=== PATIENT | male | born 1955 | race African-American/Black ===

== ENCOUNTER 2017-03-16 14:12 | Inpatient (IN) ==
--- NOTE | 2017-03-16 14:43 | EKG Report ---
Stationary ECG Study [facility] ER Test Date: 03/16/2017 2:25:57 PM Pat Name: BHAVANA JON Department: Room: Gender: M Math Instructor: Shelli Rosen : 1955 Requested by: Bhavana Coles Order Number: [id number] Reading MD: PAUL MCFADDEN Intervals [place] Rate: 77 P: 19 CO: 179 QRS: 13 QRSD: 113 T: 106 QT: 376 QTc: 408 Interpretive Statements SINUS RHYTHM INFERIOR INFARCT, AGE UNDETERMINED WITH POSTERIOR EXTENSION Electronically Signed On 03-16-17 17:08:18 CDT by PAUL MCFADDEN [email or web address]
[2017-03-16 15:12] LABS: Basophils % 0.2 % (0.0-0.8); Eosinophils % 0.4 % (0.00-10.9); Hemoglobin 11.9 GM/DL (14.0-18.0); Immature Granulocytes % 0.4 %; Immature Granulocytes Absolute 0.02 #; Lymphocytes # 0.7 10*3/uL (1.4-4.0); Lymphocytes % 14.3 % (21.2-54.2); Mean Corpuscular HGB Conc 31.3 GM/DL (32-36); Mean Corpuscular Hemoglobin 24 PG (27-34); Mean Corpuscular Volume 77.6 FL (87-102); Mean Platelet Volume 11.4 FL (9.6-12.0); Monocytes # 0.5 10*3/uL (0.11-0.8); Monocytes % 9.8 % (1.7-12.7); Neutrophils # 3.5 10*3/uL (1.4-7.4); Neutrophils % 74.9 % (38.7-73.9); Platelet Count 100 T/CUMM (130-400); Red Cell Distribution Width 16.6 % (9.3-17.3); White Blood Count 4.7 T/CUMM (4-12)
[2017-03-16 15:29] LABS: Alanine Aminotransferase 68 U/L (16-61); Albumin 3.8 G/DL (3.4-5.0); Alkaline Phosphatase 111 U/L (45-117); Aspartate Amino Transferase 48 U/L (0-37); Blood Urea Nitrogen 65 MG/DL (7-18); Calcium 9.2 MG/DL (8.5-10.1); Glucose 302 MG/DL (74-106); Magnesium 1.6 MG/DL (1.8-2.4); Osmolality,Calculated 299.1 MOS/KG (273-304); Sodium 135 MMOL/L (136-145); Total Protein 7.5 G/DL (6.4-8.3)
[2017-03-16 15:30] LABS: Troponin I Only 0.165 NG/ML (0.00-0.045)
--- NOTE | 2017-03-16 15:45 | Emergency Department Note ---
Arrival - Arrival Chief Complaint: Non-Specific Stated Complaint: chest pain, can hardly breath ED Nursing Triage Note: Pt c/o SOB, Cough, nasal congestion, chills, horseness, indigestion, and diarrhea x 2 wks. EKG done in triage. Mode of Arrival: Ambulatory - History of Present Illness Allergies/Adverse Reactions: Allergies Allergy/AdvReac Type Severity Reaction Status Date / Time No Known Allergies Allergy Verified 08/01/15 11:22 Home Medications: Home Medications Medication Instructions Recorded Confirmed Type Atazanavir Sulfate [Reyataz] 300 mg PO DAILY 07/11/15 03/16/17 History Insulin NPH Hum/Reg Insulin Hm 40 units INH QAM 07/11/15 03/16/17 History [NovoLIN 70/30] Metoprolol Succinate 50 mg PO DAILY 07/11/15 03/16/17 History Nitroglycerin Sl Tab [Nitrostat] 0.4 mg SL DIRECTED PRN 07/11/15 03/16/17 History Pantoprazole Sodium [Protonix] 40 mg PO DAILY 07/11/15 03/16/17 History Raltegravir [Isentress Tab] 400 mg PO BID 07/11/15 03/16/17 History Insulin NPH/Regular 70/30 [HumuLIN 30 unit SUBCUT BEDTIME injection 08/03/15 Rx 70/30] Mupirocin 2% Oint [Bactroban 2% 1 applic TOP TID #10 ointment 08/27/15 03/16/17 Rx Oint] Cetirizine HCl 10 mg PO DAILY 03/16/17 03/16/17 History Colchicine [Colcrys] 0.6 mg PO DAILY 03/16/17 03/16/17 History Hydrocodone/Acetaminophen [[place] 1 each PO Q12H PRN 03/16/17 03/16/17 History 10-325 Tablet] Isosorbide Mononitrate [Isosorbide 30 mg PO DAILY 03/16/17 03/16/17 History Mononitrate ER] Lisinopril/Hydrochlorothiazide 1 each PO DAILY 03/16/17 03/16/17 History [Lisinopril-Hctz 10-12.5 mg Tab] Lopinavir/Ritonavir 200-50 2 tablet PO BID 03/16/17 03/16/17 History [Kaletra 200-50] Pioglitazone HCl 30 mg PO DAILY 03/16/17 03/16/17 History Medical,Surgical,& Family Hx - Medical History Cardio: History of: Cardiac Dysrhythmia (BRADYCARDIA), CAD, Hypertension, Cardiovascular Problems (CABG 2008) Psychological: History of: Psychiatric/Substance Abuse Tx (Past HX of IV drug and ETOH use) Neurology: History of: Migraine No history of: Seizures Endocrine: History of: Diabetes Mellitus (IDDM), Dyslipidemia Respiratory: History of: Lung Cancer (3 years ago) Gastrointestinal: History of: GERD, Gastrointestinal Bleed, Hepatitis (C) Other: History of: HIV - Surgical History Cardiac Surgeries: Sugical HX of: Cardiac Surgery (CABG (2008)) - Family History Family History: Reports;: Family Diabetes, Family Hypertension, Family Stroke Denies;: Family Cancer - Social History Smoking Status: Former smoker Exam Vital Signs: Vital Signs Temperature 98.3 F 03/16/17 14:21 Pulse Rate 82 03/16/17 14:21 Respiratory Rate 20 03/16/17 14:21 Blood Pressure 121/72 03/16/17 14:21 O2 Sat by Pulse Oximetry 99 03/16/17 14:21 Results - Labs CBC & BMP: 03/16/17 14:48 03/16/17 14:48 Lab Results: I have reviewed the patients labs Labs: Laboratory Tests 03/16/17 14:48 Potassium 6.0 H* Troponin I 0.165 H
--- NOTE | 2017-03-16 15:50 | Emergency Department Note ---
Breanna Paul Hilary, am scribing for, and in the presence of, Jalen Mays MD 15: 47. Tabatha Paul James D, MD, personally performed the services described in this documentation, ascribed by Stacey Carlos in my presence, and it is both accurate and complete 550 . Arrival - Arrival ED Nursing Triage Note: Pt c/o SOB, Cough, nasal congestion, chills, horseness, indigestion, and diarrhea x 2 wks. EKG done in triage. Mode of Arrival: Ambulatory Limitations: No Limitations Source: Patient, RN Notes Reviewed - History of Present Illness Onset (ago): week(s) <Jalen Mays - Last Filed: 03/16/17 15:49> <Zeus Amato - Last Filed: 03/16/17 19:54> - Arrival Chief Complaint: Non-Specific Stated Complaint: chest pain, can hardly breath Time Seen by Provider: 03/16/17 15:40 - History of Present Illness HPI Narrative: Pt is a 61 y/o black male presenting to the ED with c/o diarrhea which onset 2 weeks ago. Pt states he is having diarrhea more than 3 times a day. Pt confirms diarrhea, vomiting, coughing, fever, abdominal pain and dysuria but denies chest pain. Pt had a CD4 level checked 3 weeks ago and he states it was good but he couldn't recall the actual number. No other complaints or problems stated in the ED. (Stacey Carlos) Pt is a 61 y/o black male presenting to the ED with c/o diarrhea which onset 2 weeks ago. Pt states he is having diarrhea more than 3 times a day. Pt confirms diarrhea, vomiting, coughing, fever, abdominal pain and dysuria but denies chest pain. Pt had a CD4 level checked 3 weeks ago and he states it was good but he couldn't recall the actual number. No other complaints or problems stated in the ED. (Jalen Mays) Allergies/Adverse Reactions: Allergies Allergy/AdvReac Type Severity Reaction Status Date / Time No Known Allergies Allergy Verified 08/01/15 11:22 Home Medications: Home Medications Medication Instructions Recorded Confirmed Type Atazanavir Sulfate [Reyataz] 300 mg PO DAILY 07/11/15 03/16/17 History Insulin NPH Hum/Reg Insulin Hm 40 units INH QAM 07/11/15 03/16/17 History [NovoLIN 70/30] Metoprolol Succinate 50 mg PO DAILY 07/11/15 03/16/17 History Nitroglycerin Sl Tab [Nitrostat] 0.4 mg SL DIRECTED PRN 07/11/15 03/16/17 History Pantoprazole Sodium [Protonix] 40 mg PO DAILY 07/11/15 03/16/17 History Raltegravir [Isentress Tab] 400 mg PO BID 07/11/15 03/16/17 History Insulin NPH/Regular 70/30 [HumuLIN 30 unit SUBCUT BEDTIME injection 08/03/15 Rx 70/30] Mupirocin 2% Oint [Bactroban 2% 1 applic TOP TID #10 ointment 08/27/15 03/16/17 Rx Oint] Cetirizine HCl 10 mg PO DAILY 03/16/17 03/16/17 History Colchicine [Colcrys] 0.6 mg PO DAILY 03/16/17 03/16/17 History Hydrocodone/Acetaminophen [[place] 1 each PO Q12H PRN 03/16/17 03/16/17 History 10-325 Tablet] Isosorbide Mononitrate [Isosorbide 30 mg PO DAILY 03/16/17 03/16/17 History Mononitrate ER] Lisinopril/Hydrochlorothiazide 1 each PO DAILY 03/16/17 03/16/17 History [Lisinopril-Hctz 10-12.5 mg Tab] Lopinavir/Ritonavir 200-50 2 tablet PO BID 03/16/17 03/16/17 History [Kaletra 200-50] Pioglitazone HCl 30 mg PO DAILY 03/16/17 03/16/17 History Review of System - Review of System 12 point system: reviewed and no additional remarkable complaints except as stated - Review of System Constitutional: Present: fever Cardiovascular: Absent: chest pain Gastrointestinal: Present: abdominal pain, vomiting, diarrhea Genitourinary male: Present: dysuria <Jalen Mays - Last Filed: 03/16/17 15:49> Medical,Surgical,& Family Hx - Medical History Cardio: History of: Cardiac Dysrhythmia (BRADYCARDIA), CAD, Hypertension, Cardiovascular Problems (CABG 2008) Psychological: History of: Psychiatric/Substance Abuse Tx (Past HX of IV drug and ETOH use) Neurology: History of: Migraine No history of: Seizures Endocrine: History of: Diabetes Mellitus (IDDM), Dyslipidemia Respiratory: History of: Lung Cancer (3 years ago) Gastrointestinal: History of: GERD, Gastrointestinal Bleed, Hepatitis (C) Other: History of: HIV - Surgical History Cardiac Surgeries: Sugical HX of: Cardiac Surgery (CABG (2008)) - Family History Family History: Reports;: Family Diabetes, Family Hypertension, Family Stroke Denies;: Family Cancer - Social History Smoking Status: Former smoker <Jalen Mays - Last Filed: 03/16/17 15:49> Exam <Jalen Mays - Last Filed: 03/16/17 15:49> <Zeus Amato - Last Filed: 03/16/17 19:54> Physical Examination: GENERAL: This is a well-nourished, well-developed in no apparent distress. VITAL SIGNS: Temperature: 98.3 Pulse: 82 Respiratory: 20 Blood Pressure: 121/ 72 O2Sat: 99 HEENT: Head is normocephalic and atraumatic. Pupils are equally round and reactive to light. Extraocular movement are intact. Oropharynx is benign with moist mucous membranes. NECK: Neck is soft and supple without tenderness. There are no masses. There is no lymphadenopathy. LUNGS: Lungs are clear to auscultation bilaterally. Chest rises symmetrically. There is no chest wall tenderness. CV: Heart is regular rate and rhythm without murmurs, rubs, or gallops. ABDOMEN: Abdomen is soft, non-tender to palpation. There are no abnormal masses palpated. There is no organomegaly. Bowel sounds are present and active. SKIN: Skin is warm and dry. No rash. EXTREMITIES: Patient has full range of motion without tenderness. There is no pedal edema. NEUROLOGIC: Awake, alert, and oriented x4. Cranial nerves II through XII are grossly intact. There are no motorsensory deficits. PSYCHIATRIC: Normal affect. Normal mood. ([place],Stacey) GENERAL: This is a well-nourished, well-developed slightly thin black male in no apparent distress. VITAL SIGNS: Temperature: 98.3 Pulse: 82 Respiratory: 20 Blood Pressure: 121/ 72 O2Sat: 99 HEENT: Head is normocephalic and atraumatic. Pupils are equally round and reactive to light. Extraocular movement are intact. Oropharynx is benign with moist mucous membranes. NECK: Neck is soft and supple without tenderness. There are no masses. There is no lymphadenopathy. LUNGS: Lungs are clear to auscultation bilaterally. Chest rises symmetrically. There is no chest wall tenderness. CV: Heart is regular rate and rhythm without murmurs, rubs, or gallops. ABDOMEN: Abdomen is soft, non-tender to palpation. There are no abnormal masses palpated. There is no organomegaly. Bowel sounds are present and active. SKIN: Skin is warm and dry. No rash. EXTREMITIES: Patient has full range of motion without tenderness. There is no pedal edema. NEUROLOGIC: Awake, alert, and oriented x4. Cranial nerves II through XII are grossly intact. There are no motorsensory deficits. PSYCHIATRIC: Normal affect. Normal mood. (Jalen Mays) Vital Signs: Vital Signs Temperature 98.4 F 03/16/17 19:03 Pulse Rate 76 03/16/17 19:03 Respiratory Rate 18 03/16/17 19:03 Blood Pressure 143/93 03/16/17 19:03 O2 Sat by Pulse Oximetry 98 03/16/17 19:03 Course <Jalen Mays - Last Filed: 03/16/17 15:49> - Reevaluation(s) Time: 17:30 - Consultations Time: 17:45 Time: 17:52 <Zeus Amato - Last Filed: 03/16/17 19:54> - Reevaluation(s) Reevaluation #1: 18-gauge was placed in left IJ by me for IV access. (Zeus Amato) - Consultations Consultation #1: I have repetitively asked for urine to be collected. Thus far no urine has been collected. Continuing to wait. (Zeus Amato) Consultation #2: I discussed the patient with the hospitalist service who will admit the patient for further evaluation and IV fluids. (Zeus Amato) Results - Labs CBC & BMP: 03/16/17 14:48 03/16/17 14:48 Lab Results: I have reviewed the patients labs <Jalen Mays - Last Filed: 03/16/17 15:49> - Labs CBC & BMP: 03/16/17 14:48 03/16/17 17:01 <AmatoZeus apodaca M - Last Filed: 03/16/17 19:54> - Labs Labs: Laboratory Tests 03/16/17 03/16/17 03/16/17 14:48 14:48 14:48 WBC 4.7 RBC 4.90 Hgb 11.9 L Hct 38.0 L MCV 77.6 L MCH 24 L MCHC 31.3 L Plt Count 100 L Neut % (Auto) 74.9 H Lymph % (Auto) 14.3 L Lymph # (Auto) 0.7 L Sodium 135 L Potassium 6.0 H* Chloride 109 H Carbon Dioxide 18 L BUN 65 H Creatinine 3.50 H Glucose 302 H Magnesium 1.6 L Total Bilirubin 4.40 H AST 48 H ALT 68 H CK-MB (CK-2) 4.8 H Troponin I 0.165 H B-Natriuretic Peptide 123 H Globulin 3.7 H Albumin/Globulin Ratio 1.0 L (Stacey Carlos) Laboratory Tests 03/16/17 03/16/17 03/16/17 14:48 14:48 14:48 WBC 4.7 RBC 4.90 Hgb 11.9 L Hct 38.0 L MCV 77.6 L MCH 24 L MCHC 31.3 L Plt Count 100 L Neut % (Auto) 74.9 H Lymph % (Auto) 14.3 L Lymph # (Auto) 0.7 L Sodium 135 L Potassium 6.0 H* Chloride 109 H Carbon Dioxide 18 L BUN 65 H Creatinine 3.50 H Glucose 302 H Magnesium 1.6 L Total Bilirubin 4.40 H AST 48 H ALT 68 H CK-MB (CK-2) 4.8 H Troponin I 0.165 H B-Natriuretic Peptide 123 H Globulin 3.7 H Albumin/Globulin Ratio 1.0 L (Jalen Mays) Lab Results WBC 4.7 T/CUMM (4-12) 03/16/17 14:48 RBC 4.90 MC/CUMM (3.8-5.5) 03/16/17 14:48 Hgb 11.9 GM/DL (14.0-18.0) L 03/16/17 14:48 Hct 38.0 VOL% (42.0-52.0) L 03/16/17 14:48 MCV 77.6 FL (87-102) L 03/16/17 14:48 MCH 24 PG (27-34) L 03/16/17 14:48 MCHC 31.3 GM/DL (32-36) L 03/16/17 14:48 RDW 16.6 % (9.3-17.3) 03/16/17 14:48 Plt Count 100 T/CUMM (130-400) L 03/16/17 14:48 MPV 11.4 FL (9.6-12.0) 03/16/17 14:48 Neut % (Auto) 74.9 % (38.7-73.9) H 03/16/17 14:48 Lymph % (Auto) 14.3 % (21.2-54.2) L 03/16/17 14:48 [place] % (Auto) 9.8 % (1.7-12.7) 03/16/17 14:48 Eos % (Auto) 0.4 % (0.00-10.9) 03/16/17 14:48 Baso % (Auto) 0.2 % (0.0-0.8) 03/16/17 14:48 Neut # (Auto) 3.5 10*3/uL (1.4-7.4) 03/16/17 14:48 Lymph # (Auto) 0.7 10*3/uL (1.4-4.0) L 03/16/17 14:48 [place] # (Auto) 0.5 10*3/uL (0.11-0.8) 03/16/17 14:48 Eos # (Auto) 0.0 10*3/uL (0.0-0.87) 03/16/17 14:48 Baso # (Auto) 0.0 10*3/uL (0.0-0.2) 03/16/17 14:48 Immature Gran % 0.4 % 03/16/17 14:48 Nucleated RBC % 0.0 /100WBC 03/16/17 14:48 Immature Gran # 0.02 # 03/16/17 14:48 Nucleated RBCs # 0.00 10*3/uL 03/16/17 14:48 Sodium 135 MMOL/L (136-145) L 03/16/17 14:48 Potassium 5.5 MMOL/L (3.5-5.1) H 03/16/17 17:01 Chloride 109 MMOL/L (98-107) H 03/16/17 14:48 Carbon Dioxide 18 MMOL/L (21-32) L 03/16/17 14:48 Anion Gap 14.0 MMOL/L (5.0-15.0) 03/16/17 14:48 BUN 65 MG/DL (7-18) H 03/16/17 14:48 Creatinine 3.50 MG/DL (0.70-1.30) H 03/16/17 14:48 GFR Calculation 23 ML/MIN 03/16/17 14:48 BUN/Creatinine Ratio 18.00 RATIO (6.00-20.00) 03/16/17 14:48 Glucose 302 MG/DL (74-106) H 03/16/17 14:48 Calculated Osmolality 299.1 MOS/KG (273-304) 03/16/17 14:48 Lactic Acid 1.9 MMOL/L (0.4-2.0) 03/16/17 14:48 Calcium 9.2 MG/DL (8.5-10.1) 03/16/17 14:48 Magnesium 1.6 MG/DL (1.8-2.4) L 03/16/17 14:48 Total Bilirubin 4.40 MG/DL (0.2-1.0) H 03/16/17 14:48 AST 48 U/L (0-37) H 03/16/17 14:48 ALT 68 U/L (16-61) H 03/16/17 14:48 Alkaline Phosphatase 111 U/L (45-117) 03/16/17 14:48 Total Creatine Kinase 113 U/L (39-308) 03/16/17 14:48 CK-MB (CK-2) 4.8 U/L (0.5-3.6) H 03/16/17 14:48 Troponin I 0.165 NG/ML (0.00-0.045) H 03/16/17 14:48 B-Natriuretic Peptide 123 PG/ML (2-100) H 03/16/17 14:48 Total Protein 7.5 G/DL (6.4-8.3) 03/16/17 14:48 Albumin 3.8 G/DL (3.4-5.0) 03/16/17 14:48 Globulin 3.7 G/DL (2.3-3.5) H 03/16/17 14:48 Albumin/Globulin Ratio 1.0 RATIO (1.1-2.2) L 03/16/17 14:48 (Zeus Amato) Disposition Case discussed with: patient <Jalen Mays - Last Filed: 03/16/17 15:49> Case discussed with: patient <Zeus Amato - Last Filed: 03/16/17 19:54> Clinical Impression: Diarrhea, HIV (human immunodeficiency virus infection), Moderate dehydration, Hyperglycemia, Hyperkalemia, Renal failure, acute Disposition: Still a Patient Condition: Stable
[2017-03-16 16:15] LABS: Lactic Acid 1.9 MMOL/L (0.4-2.0)
--- NOTE | 2017-03-16 16:17 | XRay Report ---
XR chest 2V Date: 03/16/2017 2:40 PM History: Shortness of breath, cough Comparison: 08/23/2015 Technique: PA and lateral chest Findings: The heart is normal in size. Prior median sternotomy with chronic scarring. Stable irregular density in the left upper lobe/hilar location. Persistent upward retraction of the left hilum. Degenerative changes are noted. Impression: COPD with chronic scarring in the left superhilar location extending into the left upper lobe in patient with prior median sternotomy and history of carcinoma of the lung. No significant progressive findings are identified. PROCEDURE INTERPRETED AT [facility] DEPARTMENT OF RADIOLOGY Final Report Signed by: Dr. Roshni Barton
--- NOTE | 2017-03-16 16:21 | XRay Report ---
Exam: XR abdomen 2V Date: 03/16/2017 3:44 PM Comparison: 11/10/2013 Indication: Generalized abdominal pain Technique:[Supine and erect abdomen] Findings: Mild gaseous distention of the colon with no free air. Multiple calcified gallstones are identified. Prior median sternotomy with arterial calcifications. Progressive degenerative changes. Impression: Mild gaseous distention of the colon which could be related possible ileus, etc. Cholelithiasis with vascular calcifications. Prior median sternotomy with irregular density in the left suprahilar location as described on chest x-ray report of same day. PROCEDURE INTERPRETED AT [facility] DEPARTMENT OF RADIOLOGY Final Report Signed by: Dr. Roshni Barton
[2017-03-16] MEDS ORDERED: NITROGLYCERIN SL 0.4 MG TABLET SL PRN (18:03)
--- NOTE | 2017-03-16 18:44 | Hospitalist History & Physical ---
Assessment and Plan - Time spent with patient Time spent with patient: Greater than 30 minutes (1) Hyperkalemia Status: Acute Assessment and plan: Mr. Webber is a 61-year-old -[place] male with multiple medical problems admitted with persistent diarrhea with hypokalemia, hypomagnesemia, acute renal failure and hyperglycemia. Patient will be admitted to the floor by hospital medicine, given IV fluids and magnesium replacement. Recheck his labs in the morning and make adjustments as needed. His home medicines have been restarted. We will also check a stool studies and gallbladder ultrasound. Dr. Michele has seen and examined the patient further recommendations to follow. Current Visit: No (2) Anemia Status: Acute Current Visit: No Qualifiers: Anemia type: unspecified cause Qualified Code(s): D64.9 - Anemia, unspecified (3) Renal failure, acute Status: Acute Current Visit: No Qualifiers: Acute renal failure type: with acute tubular necrosis Qualified Code(s): N17.0 - Acute kidney failure with tubular necrosis (4) Hypertension Status: Chronic Current Visit: No (5) Diabetes mellitus, insulin dependent (IDDM), controlled Status: Chronic Current Visit: No (6) Hypomagnesemia Status: Acute Current Visit: No (7) HIV (human immunodeficiency virus infection) Status: Acute Current Visit: No (8) Diarrhea Status: Acute Current Visit: Yes (9) Moderate dehydration Status: Acute Current Visit: Yes (10) Hyperglycemia Status: Acute Current Visit: Yes History of Present Illness Chief complaint: Diarrhea/pain History of present illness: Mr. Webber is a 61 year old male with history of HIV, substance abuse, CAD status post CABG, bradycardia, diabetes, and lung cancer presenting to the ED with 2 month history of diarrhea. Patient states it has worsened over the last few days with up to 4-5 bowel movements per day that are watery associated with abdominal cramping. Patient says he does get hungry but when he eats he immediately has abdominal cramping with diarrhea. Patient states he has had intermittent fever, cold sweats, intermittent nausea and vomiting. Patient denies headache blurry vision, dysphagia, constipation, chest pain, shortness of breath, or lower extremity edema. Patient is afebrile and white count is normal. His initial potassium in the ED was 6 and is now dropped down to 5.5. Patient's creatinine is elevated at 3.5 and blood sugars over 300. Patient's mag is low and his bilirubin is elevated at 4.4. He also has an elevated troponin of 0.165 and a BNP of 123. After discussion with Dr. Rojas the ED physician and Dr. Michele the admitting hospitalist, it was agreed patient will be admitted for further evaluation and treatment. Home Medications Medication Instructions Recorded Confirmed Type Atazanavir Sulfate [Reyataz] 300 mg PO DAILY 07/11/15 03/16/17 History Insulin NPH Hum/Reg Insulin Hm 40 units INH QAM 07/11/15 03/16/17 History [NovoLIN 70/30] Metoprolol Succinate 50 mg PO DAILY 07/11/15 03/16/17 History Nitroglycerin Sl Tab [Nitrostat] 0.4 mg SL DIRECTED PRN 07/11/15 03/16/17 History Pantoprazole Sodium [Protonix] 40 mg PO DAILY 07/11/15 03/16/17 History Raltegravir [Isentress Tab] 400 mg PO BID 07/11/15 03/16/17 History Insulin NPH/Regular 70/30 [HumuLIN 30 unit SUBCUT BEDTIME injection 08/03/15 Rx 70/30] Mupirocin 2% Oint [Bactroban 2% 1 applic TOP TID #10 ointment 08/27/15 03/16/17 Rx Oint] Cetirizine HCl 10 mg PO DAILY 03/16/17 03/16/17 History Colchicine [Colcrys] 0.6 mg PO DAILY 03/16/17 03/16/17 History Hydrocodone/Acetaminophen [[place] 1 each PO Q12H PRN 03/16/17 03/16/17 History 10-325 Tablet] Isosorbide Mononitrate [Isosorbide 30 mg PO DAILY 03/16/17 03/16/17 History Mononitrate ER] Lisinopril/Hydrochlorothiazide 1 each PO DAILY 03/16/17 03/16/17 History [Lisinopril-Hctz 10-12.5 mg Tab] Lopinavir/Ritonavir 200-50 2 tablet PO BID 03/16/17 03/16/17 History [Kaletra 200-50] Pioglitazone HCl 30 mg PO DAILY 03/16/17 03/16/17 History Allergies Allergy/AdvReac Type Severity Reaction Status Date / Time No Known Allergies Allergy Verified 08/01/15 11:22 Medical,Surgical,& Family Hx - Medical History Cardio: History of: Cardiac Dysrhythmia (BRADYCARDIA), CAD, Hypertension, Cardiovascular Problems (CABG 2008) Psychological: History of: Psychiatric/Substance Abuse Tx (Past HX of IV drug and ETOH use) Neurology: History of: Migraine No history of: Seizures Endocrine: History of: Diabetes Mellitus (IDDM), Dyslipidemia Respiratory: History of: Lung Cancer (3 years ago) Gastrointestinal: History of: GERD, Gastrointestinal Bleed, Hepatitis (C) Other: History of: HIV - Surgical History Cardiac Surgeries: Sugical HX of: Cardiac Surgery (CABG (2008)) - Family History Family History: Reports;: Family Diabetes, Family Hypertension, Family Stroke Denies;: Family Cancer - Social History Smoking Status: Former smoker Marital Status: Single Lives With:: Alone Functional capacity: independent ambulation Review of systems: Complete 10 system review of systems was obtained and pertinent negatives and positives per HPI Exam - Constitutional Vitals: Period Temp Pulse Resp BP Sys/[place] Pulse Ox Last 24 Hr 98.3 F-98.4 F 76-82 18-20 121/72 96-99 Exam: Constitutional System: No distress. No tremulousness. Head: Normocephalic, atraumatic. Ears, Nose and Throat System: No evidence of Otitis or Mastoiditis. No epistaxis or discharge Eyes System: Pupils equal, round, and reactive. Extraocular muscles intact. Neck: Supple, without adenopathy, No jugular venous distention. No thyromegaly, neck mass, or prior surgery apparent. Respiratory System: Chest clear to auscultation. Cardiovascular System: Heart with regular rate and rhythm. No murmur. GI System: Abdomen mildly distended, mildly tender throughout. Normo active bowel sounds present. Musculoskeletal System: limbs with no pedal edema. Full distal pulses. Neurological System: No discernable sensory deficit. No aphasia Psychiatric System: Conversation is rational Results - Labs CBC & BMP: 03/16/17 14:48 03/16/17 17:01 Lab Results: I have reviewed the past 24 hour labs - EKG EKG shows: sinus rhythm - Impressions EKG reading sinus rhythm with age-indeterminate inferior infarct and minimal ST depression - Diagnostic Findings Procedure: Abdominal x-ray: report reviewed by me (Mild gaseous distention of the colon. Cholelithiasis), Chest x-ray: report reviewed by me (COPD with chronic scarring)
[2017-03-16] MEDS ORDERED: DEXTROSE 50% 25 GM/50 ML VIAL IV PRN (18:49)
[2017-03-16] MEDS ORDERED: GLUCAGON 1 MG VIAL IM PRN (18:49)
--- NOTE | 2017-03-16 20:16 | Ultrasound Report ---
Right upper quadrant ultrasound Indication: Abdominal Pain, nausea Findings: The liver is normal in size with heterogeneous echogenicity and nodular contour. The gallbladder has multiple mobile calculi and sludge are present. The gallbladder wall thickness is 2.0 mm . The common bile duct measures 5.0 mm. The visualized portion of the pancreas appear within normal limits The right kidney is normal in size and echogenicity and measures 8.9 cm . No free fluid or free air seen. Impression: Heterogeneous liver with nodular contour, and indicate cirrhosis. Cholelithiasis and gallbladder sludge. No signs of acute cholecystitis seen. No other evidence of abnormality demonstrated. Ultrasound images stored and captured. PROCEDURE INTERPRETED AT [facility] DEPARTMENT OF RADIOLOGY Final Report Signed by: Dr. Escobar Cormier
[2017-03-16] MEDS ORDERED: ACETAMINOPHEN 325 MG TABLET PO PRN (20:55)
[2017-03-16] MEDS ORDERED: ONDANSETRON 4 MG/2 ML VIAL IV PRN (20:55)
[2017-03-16] MEDS ORDERED: LOPERAMIDE 2 MG CAPSULE PO PRN (20:55)
[2017-03-16] MEDS ORDERED: LOPINAVIR/RITONAVIR 200-50 MG TABLET PO SCH (21:00)
[2017-03-16] MEDS: SODIUM CHLORIDE 0.9% 1,000 ML IV SCH (21:33)
[2017-03-16] MEDS: metroNIDAZOLE 250 MG TABLET PO SCH (22:28)
[2017-03-16] MEDS: INSULIN REGULAR 100 UNIT/ML SUBCUT SCH (22:28)
[2017-03-16] MEDS: RALTEGRAVIR 400 MG TABLET PO SCH (22:28)
[2017-03-16] MEDS: INSULIN NPH/REGULAR 70/30 100 UNIT/ML SUBCUT SCH (22:28)
[2017-03-16] MEDS: MUPIROCIN 2% OINT 22 GM TUBE TOP SCH (22:29)
[2017-03-17 04:58] LABS: Basophils % 0.3 % (0.0-0.8); Eosinophils % 0.8 % (0.00-10.9); Hematocrit 31.1 VOL% (42.0-52.0); Hemoglobin 9.5 GM/DL (14.0-18.0); Immature Granulocytes % 0.3 %; Immature Granulocytes Absolute 0.01 #; Lymphocytes # 0.6 10*3/uL (1.4-4.0); Lymphocytes % 15.6 % (21.2-54.2); Mean Corpuscular HGB Conc 30.5 GM/DL (32-36); Mean Corpuscular Hemoglobin 24 PG (27-34); Mean Corpuscular Volume 78.3 FL (87-102); Mean Platelet Volume 11.2 FL (9.6-12.0); Monocytes # 0.5 10*3/uL (0.11-0.8); Monocytes % 12.2 % (1.7-12.7); Neutrophils # 2.8 10*3/uL (1.4-7.4); Neutrophils % 70.8 % (38.7-73.9); Platelet Count 76 T/CUMM (130-400); Red Blood Count 3.97 MC/CUMM (3.8-5.5); Red Cell Distribution Width 16.3 % (9.3-17.3); White Blood Count 3.9 T/CUMM (4-12)
[2017-03-17 05:11] LABS: Calcium 7.7 MG/DL (8.5-10.1); Magnesium 1.7 MG/DL (1.8-2.4); Osmolality,Calculated 300.5 MOS/KG (273-304); Potassium 5.6 MMOL/L (3.5-5.1)
[2017-03-17 05:33] LABS: Hypochromasia 1+; Lymphocytes 20 % (20-55); Microcytosis 1+; Nucleated Red Blood Cells 1 (0-5); Ovalocytes Few; Segmented Neutrophils 69 % (50-85); Total Cells Counted 100
[2017-03-17 05:34] LABS: Platelet Estimate Decreased
[2017-03-17] MEDS: metroNIDAZOLE 250 MG TABLET PO SCH ×4 (06:04→21:02)
[2017-03-17] MEDS: SODIUM CHLORIDE 0.9% 1,000 ML IV SCH (06:05)
--- NOTE | 2017-03-17 09:31 | Infectious Disease Consult ---
Assessment and Plan (1) Diabetes Status: Acute Assessment and plan: Diabetes seems uncontrolled Current Visit: Yes (2) Diarrhea Status: Acute Assessment and plan: I am not sure if this is actual diarrhea by definition that is it does not seem as if he has been having within 3 loose stools per day. Further if he was really having diarrhea he should be hypokalemic or at least normokalemic rather than hyperkalemic [from wasting potassium in the stool]. Stool studies are pending and we will see if anything comes up positive. Otherwise the "diarrhea" may very well be related to his antiretroviral therapy , particularly the Kaletra. There is a known adverse effect of this medicine, among other metabolic adverse effects, which is why it is not use this much anymore. Current Visit: Yes (3) HIV (human immunodeficiency virus infection) Status: Acute Assessment and plan: The patient reported controlled, his last visit was a month ago. CD4 and viral load are pending him and we will see what those show. He is not on PCP on MAC prophylaxis it seems his CD4 count is above 200. Thank you very much for the consult. Will follow. Current Visit: Yes (4) Renal failure, acute Status: Acute Assessment and plan: Probably related to volume depletion from his "diarrhea". He has baseline chronic renal insufficiency based on review of old results. So this is acute on chronic renal failure. No need for adjusting dose of antiretroviral therapy for renal function. Current Visit: Yes (5) Hyperkalemia Status: Acute Assessment and plan: Likely related to acute renal insufficiency. Improving. Current Visit: No (6) Hypertension Status: Chronic Current Visit: No History of Present Illness Chief complaint: Diarrhea, HIV infection History of present illness: Mr. Webber is a 61 year old male who is a very poor historian. He says he has HIV infection for over 20 years. He says he is controlled on his current antiretroviral regimen which is unusual one consisted of Reyataz, Kaletra, and Isentress. He sees a provider in [place]. He is doing relatively well until 2 months sorry 2 weeks ago he said when he developed diarrhea. The diarrhea was not every day some days 3 loose liquid stools of a days none. He started feeling malaise over the past week weak and unable to complete his regular activities without extreme fatigue. Because this was not getting better he decided to come to the hospital. He has not had any fever but sometimes he had chills. With the diarrhea there was no associated nausea or vomiting but he says he suffers some reflux in the if he takes medicine for that. No dysphagia. No sores in his mouth. He thinks he has a cold has been had he has been having a mild cough with some yellowish sputum but no pleuritic chest pain. No shortness of breath. Home Medications Medication Instructions Recorded Confirmed Type Atazanavir Sulfate [Reyataz] 300 mg PO DAILY 07/11/15 03/16/17 History Metoprolol Succinate 50 mg PO DAILY 07/11/15 03/16/17 History Nitroglycerin Sl Tab [Nitrostat] 0.4 mg SL DIRECTED PRN 07/11/15 03/16/17 History Pantoprazole Sodium [Protonix] 40 mg PO DAILY 07/11/15 03/16/17 History Raltegravir [[place]entress Tab] 400 mg PO BID 07/11/15 03/16/17 History Insulin NPH/Regular 70/30 [HumuLIN 30 unit SUBCUT BEDTIME injection 08/03/15 Rx 70/30] Mupirocin 2% Oint [Bactroban 2% 1 applic TOP TID #10 ointment 08/27/15 03/16/17 Rx Oint] Cetirizine HCl 10 mg PO DAILY 03/16/17 03/16/17 History Colchicine [Colcrys] 0.6 mg PO DAILY 03/16/17 03/16/17 History Hydrocodone/Acetaminophen [[place] 1 each PO Q12H PRN 03/16/17 03/16/17 History 10-325 Tablet] Insulin NPH/Regular 70/30 [HumuLIN 30 units SUBCUT BEDTIME 03/16/17 03/16/17 History 70/30] Isosorbide Mononitrate [Isosorbide 30 mg PO DAILY 03/16/17 03/16/17 History Mononitrate ER] Lisinopril/Hydrochlorothiazide 1 each PO DAILY 03/16/17 03/16/17 History [Lisinopril-Hctz 10-12.5 mg Tab] Lopinavir/Ritonavir 200-50 2 tablet PO BID 03/16/17 03/16/17 History [Kaletra 200-50] Pioglitazone HCl 30 mg PO DAILY 03/16/17 03/16/17 History Allergies Allergy/AdvReac Type Severity Reaction Status Date / Time No Known Allergies Allergy Verified 08/01/15 11:22 12 point system: reviewed and no additional remarkable complaints except as stated (Per HPI) Medical,Surgical,& Family Hx - Medical History Cardio: History of: Cardiac Dysrhythmia (BRADYCARDIA), CAD, Hypertension, Cardiovascular Problems (CABG 2008) Psychological: History of: Psychiatric/Substance Abuse Tx (Past HX of IV drug and ETOH use) Neurology: History of: Migraine No history of: Seizures Endocrine: History of: Diabetes Mellitus (IDDM), Dyslipidemia Respiratory: History of: Lung Cancer (3 years ago) Gastrointestinal: History of: GERD, Gastrointestinal Bleed, Hepatitis (C) Other: History of: HIV - Surgical History Cardiac Surgeries: Sugical HX of: Cardiac Surgery (CABG (2008)) Thoracic Surgeries: Patient denies;: Organ Transplant - Family History Family History: Reports;: Family Diabetes, Family Hypertension, Family Stroke Denies;: Family Cancer - Social History Smoking Status: Former smoker Frequency of Alcohol Use: None Type of Drug Use: None Infectious Disease Exam H&P - Constitutional Vitals: Vital Signs Temp Pulse Resp BP Pulse Ox 97.7 F 73 18 144/89 99 03/17/17 07:36 03/17/17 07:36 03/17/17 07:36 03/17/17 07:36 03/17/17 07:36 Intake and Output 03/16/17 03/17/17 03/17/17 23:59 07:59 15:59 Intake Total 240 / 240 1480 / 1480 Balance 240 / 240 1480 / 1480 Intake: IV 1000 / 1000 Ns 1,000 ml @ 125 mls/hr 1000 / 1000 IV .[facility] Rx#: [id number] Oral 240 / 240 480 / 480 Other: Voiding Method Toilet Toilet # Voids 1 1 # Bowel Movements 1 1 Weight 72.575 kg Exam: General: Patient relatively comfortable, nontoxic appearing, he is a bit thin but not cachectic HEENT: Mucous membranes pink and moist, anicteric acyanotic, JEMIMA, no oropharyngeal exudates Neck: Supple, no thyroid gland enlargement, no lymphadenopathy Respiratory system: Breath sounds vesicular, no crepitations or wheezes Cardiovascular: Normal S1 and S2, no murmurs appreciated Abdomen: Normal bowel sounds, soft nontender throughout, no organomegaly or mass Genitourinary: No suprapubic pain or bladder distention Extremities: no edema Skin: No rash Reports - Labs CBC & BMP: 03/17/17 04:42 03/17/17 04:42 Labs: Laboratory Results - last 24 hr 03/16/17 03/17/17 03/17/17 21:03 04:42 04:42 WBC 3.9 L RBC 3.97 Hgb 9.5 L D Hct 31.1 L MCV 78.3 L MCH 24 L MCHC 30.5 L RDW 16.3 Plt Count 76 L D MPV 11.2 Neut % (Auto) 70.8 Lymph % (Auto) 15.6 L [place] % (Auto) 12.2 Eos % (Auto) 0.8 Baso % (Auto) 0.3 Neut # (Auto) 2.8 Lymph # (Auto) 0.6 L [place] # (Auto) 0.5 Eos # (Auto) 0.0 Baso # (Auto) 0.0 Total Counted 100 Immature Gran % 0.3 Nucleated RBC % 0.0 Immature Gran # 0.01 Segmented Neutrophils 69 Lymphocytes 20 Monocytes 10 Basophils 1.0 H Nucleated RBCs 1 Nucleated RBCs # 0.00 Platelet Estimate Decreased Hypochromasia 1+ Microcytosis 1+ Ovalocytes Few Sodium 139 Potassium 5.6 H Chloride 114 H Carbon Dioxide 18 L Anion Gap 12.6 BUN 58 H Creatinine 2.70 H GFR Calculation 31 BUN/Creatinine Ratio 21.00 H Glucose 236 H POC Glucose 224 H Calculated Osmolality 300.5 Calcium 7.7 L Magnesium 1.7 L - Reports Microbiology: Microbiology 03/17/17 00:18 - Final Stool No WBCs seen 03/17/17 00:18 Clostridium difficile Toxin Assay - Final Stool Negative for CDiff A &/or B Ag - Diagnostic Findings Procedure: Chest x-ray: image reviewed by me, report reviewed by me (No consolidation or effusion)
[2017-03-17] MEDS: RALTEGRAVIR 400 MG TABLET PO SCH (09:39)
[2017-03-17] MEDS: PANTOPRAZOLE 40 MG TABLET PO SCH (09:39)
[2017-03-17] MEDS: METOPROLOL SUCCINATE XL 50 MG TABLET PO SCH (09:39)
[2017-03-17] MEDS: INSULIN REGULAR 100 UNIT/ML SUBCUT SCH ×2 (09:39→17:52)
[2017-03-17] MEDS: ISOSORBIDE MONONITRATE 30 MG TABLET PO SCH (09:39)
[2017-03-17] MEDS: MUPIROCIN 2% OINT 22 GM TUBE TOP SCH ×2 (09:41→16:21)
[2017-03-17] MEDS ORDERED: SODIUM POLYSTYRENE SULFATE 15 GM/60 ML BOTTLE PO ONE (11:20)
--- NOTE | 2017-03-17 11:20 | Hospitalist Progress Note ---
Assessment and Plan (1) Renal failure, acute Status: Acute Assessment and plan: The patient's renal function is improving. We will continue IV hydration and give another dose of Kayexalate today. Will recheck electrolytes and renal function tomorrow. The patient may be ready for discharge home tomorrow. Current Visit: No Qualifiers: Acute renal failure type: with acute tubular necrosis Qualified Code(s): N17.0 - Acute kidney failure with tubular necrosis (2) Hyperkalemia Status: Acute Current Visit: No (3) Hypomagnesemia Status: Acute Current Visit: No (4) HIV (human immunodeficiency virus infection) Status: Acute Current Visit: No Hospitalist: Subjective Interval history: Mr. Webber had no new events overnight. He looks stronger and less ill than yesterday evening. The patient states that stools have reduced in frequency. I reviewed Dr. Dunn's consultation note and is much appreciated. Electrolytes show improving renal function. Exam - Constitutional Vitals: Period Temp Pulse Resp BP Sys/[place] Pulse Ox Last 24 Hr 97.7 F-98.5 F 68-79 16-20 125-153/75-93 96-100 General appearance: no acute distress - Respiratory Respiratory exam: Present: clear to auscultation bilaterally - Cardiovascular Cardiovascular exam: Present: regular rate and rhythm - GI/Abdominal GI/Abdominal exam: Present: normal bowel sounds Results - Labs CBC & BMP: 03/17/17 04:42 03/17/17 04:42 Lab Results: I have reviewed the past 24 hour labs Quality Measures - VTE Contraindication to Pharmacological VTE Prophylaxis: High Risk of Bleeding
[2017-03-17] MEDS: ATAZANAVIR SULFATE 300 MG PO SCH (13:17)
--- NOTE | 2017-03-17 15:19 | Nephrology Consult Note ---
History of Present Illness Chief complaint: Referred for "CHAD". History of present illness: Mr. Webber is a 61 year old male who is a terrible historian. He relates hx of HIV since followed by ID in [place], HCV?, hx of heroin use IV, HTN, DM2 x 15yrs, denies proliferative retinopathy, ASCAD, s/p 5v CABG 2008. [employer] Molina in [place]. Presented to ED for "diarrhea" none today. States he feels better since admission. Creatinine 3.5 down to 2.7 today with NS IVFs alone, now with hypchloremic metabolic acidosis and K to 5.6, CO2 18, Appears prerenal by labs BUN:creatinine ratio >20:1. +scleral ictarus has been noticed by patient over the last couple of weeks. TP 7.5, TB 4.4, Alb 3.8, TG 3.7. CKD stage 3 for at least 2 yrs. Creatinine 1.5 in 2014 for eGFR 57cc/min. Currently creatinine 2.7 for eGFR 31cc/min. No renal imaging. Home Medications Medication Instructions Recorded Confirmed Type Atazanavir Sulfate [Reyataz] 300 mg PO DAILY 07/11/15 03/16/17 History Metoprolol Succinate 50 mg PO DAILY 07/11/15 03/16/17 History Nitroglycerin Sl Tab [Nitrostat] 0.4 mg SL DIRECTED PRN 07/11/15 03/16/17 History Pantoprazole Sodium [Protonix] 40 mg PO DAILY 07/11/15 03/16/17 History Raltegravir [Isentress Tab] 400 mg PO BID 07/11/15 03/16/17 History Insulin NPH/Regular 70/30 [HumuLIN 30 unit SUBCUT BEDTIME injection 08/03/15 Rx 70/30] Mupirocin 2% Oint [Bactroban 2% 1 applic TOP TID #10 ointment 08/27/15 03/16/17 Rx Oint] Cetirizine HCl 10 mg PO DAILY 03/16/17 03/16/17 History Colchicine [Colcrys] 0.6 mg PO DAILY 03/16/17 03/16/17 History Hydrocodone/Acetaminophen [[place] 1 each PO Q12H PRN 03/16/17 03/16/17 History 10-325 Tablet] Insulin NPH/Regular 70/30 [HumuLIN 30 units SUBCUT BEDTIME 03/16/17 03/16/17 History 70/30] Isosorbide Mononitrate [Isosorbide 30 mg PO DAILY 03/16/17 03/16/17 History Mononitrate ER] Lisinopril/Hydrochlorothiazide 1 each PO DAILY 03/16/17 03/16/17 History [Lisinopril-Hctz 10-12.5 mg Tab] Lopinavir/Ritonavir 200-50 2 tablet PO BID 03/16/17 03/16/17 History [Kaletra 200-50] Pioglitazone HCl 30 mg PO DAILY 03/16/17 03/16/17 History Allergies Allergy/AdvReac Type Severity Reaction Status Date / Time No Known Allergies Allergy Verified 08/01/15 11:22 Medical,Surgical,& Family Hx - Medical History Cardio: History of: Cardiac Dysrhythmia (BRADYCARDIA), CAD, Hypertension, Cardiovascular Problems (CABG 2008) Psychological: History of: Psychiatric/Substance Abuse Tx (Past HX of IV drug and ETOH use) Neurology: History of: Migraine No history of: Seizures Endocrine: History of: Diabetes Mellitus (IDDM), Dyslipidemia Respiratory: History of: Lung Cancer (3 years ago) Gastrointestinal: History of: GERD, Gastrointestinal Bleed, Hepatitis (C) Other: History of: HIV - Surgical History Cardiac Surgeries: Sugical HX of: Cardiac Surgery (CABG (2008)) Thoracic Surgeries: Patient denies;: Organ Transplant - Family History Family History: Reports;: Family Diabetes, Family Hypertension, Family Stroke Denies;: Family Cancer - Social History Smoking Status: Former smoker Frequency of Alcohol Use: None Type of Drug Use: None Exam - Vital Signs Vital signs: Period Temp Pulse Resp BP Sys/Ocon[place] Pulse Ox Last 24 Hr 97.7 F-98.5 F 68-79 16-20 125-153/75-93 96-100 - General Appearance General appearance: well-developed, chronically ill EENT: ATNC, PERRL, mucous membranes dry, hearing intact, vision intact Neck: no JVD, no thyromegaly Respiratory: no kyphosis, clear Cardiology: no murmurs, no rub, no edema Gastrointestinal: normoactive bowel sounds, no tenderness Integumentary: no rash, warm and dry Neurologic: no focal deficit, no asterixis, alert and oriented x3 Musculoskeletal: no deformities, no erythema Psychiatric: mood/affect appropriate, cooperative, pressured speech Results - Labs CBC & BMP: 03/17/17 04:42 03/17/17 04:42 Assessment and Plan (1) CKD (chronic kidney disease) stage 3, GFR 30-59 ml/min Problem details: Appears prerenal, no indication for renal replacement therapy at this time. Status: Acute Current Visit: Yes (2) Hyperkalemia Problem details: Most likely due to metabolic acidosis from normal saline. Status: Acute Assessment and plan: change IVFs to sterile water + 100meq bicarb at 100cc/hr. No other treatment indicated. Current Visit: Yes (3) Diabetes Status: Acute Current Visit: Yes (4) HIV (human immunodeficiency virus infection) Status: Acute Current Visit: Yes (5) Anemia Status: Acute Current Visit: No (6) Hypertension Status: Acute Current Visit: No
[2017-03-17] MEDS: SODIUM ACETATE 100 MEQ in STERILE WATER INJ 1,000 ML IV SCH (16:48)
[2017-03-17] MEDS: RALTEGRAVIR 400 MG PO SCH (20:40)
[2017-03-17] MEDS: INSULIN NPH/REGULAR 70/30 100 UNIT/ML SUBCUT SCH (22:05)
[2017-03-18] MEDS: SODIUM ACETATE 100 MEQ in STERILE WATER INJ 1,000 ML IV SCH (03:28)
[2017-03-18] MEDS: metroNIDAZOLE 250 MG TABLET PO SCH (05:29)
[2017-03-18 08:17] LABS: Basophils % 0.3 % (0.0-0.8); Eosinophils % 1.1 % (0.00-10.9); Hematocrit 32.1 VOL% (42.0-52.0); Immature Granulocytes % 0.3 %; Immature Granulocytes Absolute 0.01 #; Lymphocytes # 0.7 10*3/uL (1.4-4.0); Lymphocytes % 18.3 % (21.2-54.2); Mean Corpuscular HGB Conc 31.2 GM/DL (32-36); Mean Corpuscular Hemoglobin 24 PG (27-34); Mean Corpuscular Volume 78.1 FL (87-102); Mean Platelet Volume 12.3 FL (9.6-12.0); Monocytes # 0.3 10*3/uL (0.11-0.8); Monocytes % 7.9 % (1.7-12.7); Neutrophils # 2.6 10*3/uL (1.4-7.4); Neutrophils % 72.1 % (38.7-73.9); Red Blood Count 4.11 MC/CUMM (3.8-5.5); White Blood Count 3.7 T/CUMM (4-12)
[2017-03-18 08:21] LABS: Platelet Count 78 T/CUMM (130-400)
[2017-03-18 08:32] LABS: Random Urine Protein (Bench) 28 MG/DL (<11.9)
[2017-03-18 08:37] LABS: Albumin (SPE) 3.4 G/DL (3.2-5.3); Albumin (SPE) Rel % 56.9 %; Alpha 1 (SPE) 0.2 G/DL (0.1-0.4); Alpha 1 (SPE) Rel % 2.9 %; Alpha 2 (SPE) 0.7 G/DL (0.4-1.0); Alpha 2 (SPE) Rel % 11.2 %; Beta (SPE) 0.6 G/DL (0.5-1.1); Gamma (SPE) 1.1 G/DL (0.7-1.7); Total Protein (Chem) 5.9 G/DL (6.4-8.2)
[2017-03-18 08:43] LABS: Calcium 7.4 MG/DL (8.5-10.1); Magnesium 1.2 MG/DL (1.8-2.4); Osmolality,Calculated 286.4 MOS/KG (273-304); Potassium 4.6 MMOL/L (3.5-5.1)
[2017-03-18 08:51] LABS: Hypochromasia 1+; Platelet Estimate Decreased
[2017-03-18 08:52] LABS: Microcytosis 1+
[2017-03-18] MEDS: INSULIN REGULAR 100 UNIT/ML SUBCUT SCH (08:56)
[2017-03-18] MEDS: METOPROLOL SUCCINATE XL 50 MG TABLET PO SCH (09:11)
[2017-03-18] MEDS: ISOSORBIDE MONONITRATE 30 MG TABLET PO SCH (09:11)
[2017-03-18] MEDS: RALTEGRAVIR 400 MG PO SCH (09:11)
[2017-03-18] MEDS: ATAZANAVIR SULFATE 300 MG PO SCH (09:11)
[2017-03-18] MEDS: PANTOPRAZOLE 40 MG TABLET PO SCH (09:11)
--- NOTE | 2017-03-18 09:23 | Nephrology Progress Note ---
Nephrology - PN: Subj Interval history: Pt states he feels better, but still with nonproductive cough. Creatinine improved to 1.8, hyperkalemia resolved with correction of metabolic acidosis with acetate containing IVFs. FeUrea c/w prerenal azotemia (30%). Exam (PN)-Nephrology - Vital Signs Vital signs: Period Temp Pulse Resp BP Sys/Oconnell Pulse Ox Last 24 Hr 97.7 F-98.3 F 71-79 18-20 125-152/75-88 99-100 - General Appearance General appearance: well-developed, chronically ill EENT: ATNC, PERRL Neck: no JVD, no thyromegaly Respiratory: no kyphosis, clear Cardiology: no murmurs, no edema Gastrointestinal: normoactive bowel sounds, no tenderness Integumentary: no rash, warm and dry Neurologic: no focal deficit, no asterixis, alert and oriented x3 Musculoskeletal: no deformities, no erythema Psychiatric: mood/affect appropriate, cooperative - Lab 03/18/17 06:23 03/18/17 06:23 Most recent lab results Calcium 7.4 MG/DL (8.5-10.1) L 03/18/17 06:23 Magnesium 1.2 MG/DL (1.8-2.4) L 03/18/17 06:23 Assessment and Plan (1) CKD (chronic kidney disease) stage 3, GFR 30-59 ml/min Problem details: Prerenal, no indication for renal replacement therapy at this time. Status: Acute Assessment and plan: Continue current IVFs. Current Visit: Yes (2) Hyperkalemia Problem details: Most likely due to metabolic acidosis from normal saline. Status: Resolved Assessment and plan: change IVFs to sterile water + 100meq bicarb at 100cc/hr. No other treatment indicated. Current Visit: Yes (3) Diabetes Status: Acute Current Visit: Yes (4) HIV (human immunodeficiency virus infection) Status: Acute Current Visit: Yes (5) Anemia Status: Acute Current Visit: No (6) Hypertension Status: Acute Current Visit: No
[2017-03-18 10:49] VITALS: BP 129/83
--- NOTE | 2017-03-18 10:51 | Infectious Disease Progress ---
Assessment and Plan (1) Diabetes Status: Acute Assessment and plan: Diabetes seems uncontrolled Current Visit: Yes (2) Diarrhea Status: Acute Assessment and plan: Clinically resolved Stool studies are pending and we will see if anything comes up positive. Otherwise the "diarrhea" may very well be related to his antiretroviral therapy , particularly the Kaletra. There is a known adverse effect of this medicine, among other metabolic adverse effects, which is why it is not use this much anymore. Patient advised to request possible switch in antiretroviral therapy when next he sees his PCP. Current Visit: Yes (3) HIV (human immunodeficiency virus infection) Status: Acute Assessment and plan: The patient reported controlled, his last visit was a month ago. CD4 and viral load are pending him and we will see what those show. He is not on PCP on MAC prophylaxis it seems his CD4 count is above 200. Current Visit: Yes (4) Renal failure, acute Status: Acute Assessment and plan: Probably related to volume depletion from his "diarrhea". He has baseline chronic renal insufficiency based on review of old results. So this is acute on chronic renal failure. No need for adjusting dose of antiretroviral therapy for renal function. Current Visit: Yes (5) Hyperkalemia Status: Acute Assessment and plan: Improving. Current Visit: No (6) Hypertension Status: Chronic Current Visit: No Infectious Disease - PN: Subj Interval history: Patient doing well, no recurrence of diarrhea. Has been afebrile. Infectious Disease Exam (PN) - Constitutional Vitals: Temp Pulse Resp BP Pulse Ox 97.8 F 81 18 129/83 100 03/18/17 10:48 03/18/17 10:48 03/18/17 10:48 03/18/17 10:48 03/18/17 10:48 General appearance: no acute distress Exam: General appearance: no acute distress - Eye Eye exam: Present: EOMI. no icterus Pupils: Present: JEMIMA - ENT ENT exam: no oropharyhgeal exudates - Respiratory Respiratory exam: vesicular BS, no crepitations or wheezes - Cardiovascular Cardiovascular exam: regular rate and rhythm, no murmurs - GI/Abdominal GI/Abdominal exam: normal bowel sounds, soft, non-tender, no organomegaly or mass - Extremities Exam Extremities exam: no edema - Skin Skin exam: no rash Results - Labs CBC & BMP: 03/18/17 06:23 03/18/17 06:23 Lab Results: I have reviewed the past 24 hour labs Quality Measures - VTE Contraindication to Pharmacological VTE Prophylaxis: High Risk of Bleeding
--- NOTE | 2017-03-18 11:30 | Discharge Summary ---
Hospital Course - Hospital Course Hospital Course: The patient was admitted to hospital with weakness, loose stools, dehydration, acute renal failure due to dehydration, hyperkalemia. The patient was admitted and given IV fluid resuscitation. We had nephrology consultation with Dr. Burton who prescribed acetate with sterile water. The patient's blood sugar and renal function improved in the next 24 hours. The patient was seen by Dr. Dunn for infectious disease. She noted that the patient is on Kaletra and 1 of the side effects of the medicine can be loose stools. She recommended that the patient returned his usual primary HIV doctor and request transition to alternate therapy. As the patient was observed the diarrhea improved. The patient is eating regular diet and now appears refreshed from his dehydration. The patient's acidosis has improved and hyperkalemia is resolved. The patient requests discharge home and this appears appropriate. On the date of discharge , chest is clear and abdomen soft. Time spent in discharge procedures, documentation, and reviewing the plan of care with the patient required 34 minutes. - Time spent with patient Time with patient DS: Greater than 30 minutes Diagnosis - Discharge Diagnosis (1) Renal failure, acute Status: Resolved (2) Hyperkalemia Status: Resolved (3) Hypomagnesemia Status: Resolved (4) HIV (human immunodeficiency virus infection) Status: Chronic Discharge Plan - Discharge Data Disposition: Disch To Home/Self Care Condition at Discharge: Stable Discharge Diet: diabetic diet - Discharge Medications Continue Raltegravir [Isentress Tab] 400 mg PO BID Pantoprazole Sodium [Protonix] 40 mg PO DAILY Nitroglycerin Sl Tab [Nitrostat] 0.4 mg SL DIRECTED PRN PRN Reason: Chest Pain Metoprolol Succinate 50 mg PO DAILY Atazanavir Sulfate [Reyataz] 300 mg PO DAILY Insulin NPH/Regular 70/30 [HumuLIN 70/30] 30 unit SUBCUT BEDTIME injection Colchicine [Colcrys] 0.6 mg PO DAILY Lisinopril/Hydrochlorothiazide [Lisinopril-Hctz 10-12.5 mg Tab] 1 each PO DAILY Lopinavir/Ritonavir 200-50 [Kaletra 200-50] 2 tablet PO BID Hydrocodone/Acetaminophen [[place] 10-325 Tablet] 1 each PO Q12H PRN PRN Reason: Pain Pioglitazone HCl 30 mg PO DAILY Cetirizine HCl 10 mg PO DAILY Isosorbide Mononitrate [Isosorbide Mononitrate ER] 30 mg PO DAILY Insulin NPH/Regular 70/30 [HumuLIN 70/30] 30 units SUBCUT BEDTIME - Follow Up or Referral Follow Up: Your,PCP [Other] - 2 Weeks - Forms/Instructions Exam - Constitutional Vitals: Period Temp Pulse Resp BP Sys/[place] Pulse Ox Last 24 Hr 97.7 F-98.3 F 71-81 18-20 125-152/82-88 99-100 Discharge Results Procedures and tests throughout hospitalization: Pending Orders 03/16/17 18:12 Cryptosporidium Antigen Stool Routine Norovirus, Stool Routine Stool Culture/Campy/Yersinia Routine 03/16/17 18:37 CD4 T-Cell Count Routine 03/17/17 04:40 Immunoglob Free Light Chains Routine Serum Protein Electrophoresis Routine Labs on day of discharge: Labs from last 24 hours 03/18/17 03/18/17 03/18/17 06:23 06:23 05:00 WBC 3.7 L RBC 4.11 Hgb 10.0 L Hct 32.1 L MCV 78.1 L MCH 24 L MCHC 31.2 L RDW 17.0 Plt Count 78 L MPV 12.3 H Neut % (Auto) 72.1 Lymph % (Auto) 18.3 L [place] % (Auto) 7.9 Eos % (Auto) 1.1 Baso % (Auto) 0.3 Neut # (Auto) 2.6 Lymph # (Auto) 0.7 L [place] # (Auto) 0.3 Eos # (Auto) 0.0 Baso # (Auto) 0.0 Immature Gran % 0.3 Nucleated RBC % 0.0 Immature Gran # 0.01 Nucleated RBCs # 0.00 Platelet Estimate Decreased Hypochromasia 1+ Microcytosis 1+ Morphology Comment Sodium 140 Potassium 4.6 Chloride 109 H Carbon Dioxide 23 Anion Gap 12.6 BUN 38 H Creatinine 1.80 H GFR Calculation 51 BUN/Creatinine Ratio 21.00 H Glucose 76 POC Glucose Calculated Osmolality 286.4 Calcium 7.4 L Magnesium 1.2 L Total Protein Ur Random Creatinine Ur Random Albumin Ur Random Albumin % U Random Total Protein Ur Random Urea Nitrogn 637 Urine PEP Interpret Pro Electrophoresis Int Serum Total Protein PEP Albumin (PEP) Albumin (relative) Matzt-3-Kkfaajjr Mzyuq-1-Qeoyuztj rel Ghgyz-8-Oavorthk Cgzck-9-Ribhbxys rel Tzqo-2-Tkxurroe Aafd-2-Hvkhaasj rel Gamma Globulins Gamma Globulins rel Free [place] Light Chains Free Lambda Light Chain Free [place]/Lambda Ratio 03/18/17 03/17/17 03/17/17 05:00 21:57 15:49 WBC RBC Hgb Hct MCV MCH MCHC RDW Plt Count MPV Neut % (Auto) Lymph % (Auto) [place] % (Auto) Eos % (Auto) Baso % (Auto) Neut # (Auto) Lymph # (Auto) [place] # (Auto) Eos # (Auto) Baso # (Auto) Immature Gran % Nucleated RBC % Immature Gran # Nucleated RBCs # Platelet Estimate Hypochromasia Microcytosis Morphology Comment Sodium Potassium Chloride Carbon Dioxide Anion Gap BUN Creatinine GFR Calculation BUN/Creatinine Ratio Glucose POC Glucose 182 H 229 H Calculated Osmolality Calcium Magnesium Total Protein Ur Random Creatinine 96 Ur Random Albumin Ur Random Albumin % U Random Total Protein Ur Random Urea Nitrogn Urine PEP Interpret Pro Electrophoresis Int Serum Total Protein PEP Albumin (PEP) Albumin (relative) Zkdlv-9-Ihpbjniy Rfhqg-0-Yciufayl rel Fylxk-8-Ceahgirq Wuyng-5-Jrnnbyut rel Vsrq-1-Mhsqztmi Oebr-5-Dnevqcfq rel Gamma Globulins Gamma Globulins rel Free [place] Light Chains Free Lambda Light Chain Free [place]/Lambda Ratio 03/17/17 03/17/17 03/17/17 11:28 08:43 04:40 WBC RBC Hgb Hct MCV MCH MCHC RDW Plt Count MPV Neut % (Auto) Lymph % (Auto) [place] % (Auto) Eos % (Auto) Baso % (Auto) Neut # (Auto) Lymph # (Auto) [place] # (Auto) Eos # (Auto) Baso # (Auto) Immature Gran % Nucleated RBC % Immature Gran # Nucleated RBCs # Platelet Estimate Hypochromasia Microcytosis Morphology Comment Sodium Potassium Chloride Carbon Dioxide Anion Gap BUN Creatinine GFR Calculation BUN/Creatinine Ratio Glucose POC Glucose 275 H 225 H Calculated Osmolality Calcium Magnesium Total Protein Ur Random Creatinine Ur Random Albumin Pending Ur Random Albumin % Pending U Random Total Protein 28 H Ur Random Urea Nitrogn Urine PEP Interpret Pending Pro Electrophoresis Int Serum Total Protein PEP 5.9 L Albumin (PEP) 3.4 Albumin (relative) 56.9 Mdqeq-5-Vzskmkaz 0.2 Pkxlg-3-Eqxeghzs rel 2.9 Soatc-3-Nkfdsoan 0.7 Fnfec-7-Zsvikllp rel 11.2 Abmu-0-Xllhlnbz 0.6 Pgef-9-Wsuznxeb rel 11.0 Gamma Globulins 1.1 Gamma Globulins rel 18.0 Free [place] Light Chains Pending Free Lambda Light Chain Pending Free [place]/Lambda Ratio Pending 03/17/17 04:40 WBC RBC Hgb Hct MCV MCH MCHC RDW Plt Count MPV Neut % (Auto) Lymph % (Auto) [place] % (Auto) Eos % (Auto) Baso % (Auto) Neut # (Auto) Lymph # (Auto) [place] # (Auto) Eos # (Auto) Baso # (Auto) Immature Gran % Nucleated RBC % Immature Gran # Nucleated RBCs # Platelet Estimate Hypochromasia Microcytosis Morphology Comment Sodium Potassium Chloride Carbon Dioxide Anion Gap BUN Creatinine GFR Calculation BUN/Creatinine Ratio Glucose POC Glucose Calculated Osmolality Calcium Magnesium Total Protein 5.9 L Ur Random Creatinine Ur Random Albumin Ur Random Albumin % U Random Total Protein Ur Random Urea Nitrogn Urine PEP Interpret Pro Electrophoresis Int Serum Total Protein PEP Albumin (PEP) Albumin (relative) Aplvs-7-Adflrsas Qghdj-9-[place] rel Iezyb-0-Eipgirgx Ukeyl-1-Xhummdtp rel Qmor-0-Mtpjjpyh Gnbg-0-Siumrvnj rel Gamma Globulins Gamma Globulins rel Free [place] Light Chains Free Lambda Light Chain Free [place]/Lambda Ratio DS: Provider Date of admission: 03/16/17 18:02 Primary care physician: . No PCP Attending physician on admission: Pete Michele MD Consults: 03/16/17 20:55 Consult to Physician [CONS] Routine Comment: HIV patient with diarrhea Consulting Provider: Kimmie Domínguez Person Notified: MD GONZALES Date Notified: 03/17/17 Time Notified: 09:06 Consult to Physician [CONS] Routine Comment: acute on chronic renal failure Consulting Provider: Beka Burton Person Notified: CARISSA Date Notified: 03/17/17 Time Notified: 09:10 03/16/17 21:00 Consult to Dietitian [CONS] Routine Reason for Dietitian: Other Discharging clinician: Pete Michele MD
[2017-03-19 15:27] LABS: 4/8 Ratio 1.4 (>=0.9)
[2017-03-20 07:04] LABS: Immuno Free Light Chain Kappa 4.73 MG/DL (0.33-1.94); Immuno Free Light Chain Lambda 2.85 MG/DL (0.57-2.63); Immuno Free Light Chain Ratio 1.66 MG/DL (0.26-1.65)
== END 2017-03-18 12:54 | disposition home or self-care (01) | DRG 682 ==
LOC: N.ED 14:12 → N.EDINP 18:02 → N.5E 18:56
PROVIDERS: ADMIT Internal Medicine; ATTEND Internal Medicine

== ENCOUNTER 2017-08-14 00:43 | Inpatient (IN) ==
[2017-08-14 02:51] LABS: Basophils % 0.3 % (0.0-0.8); Eosinophils % 0.6 % (0.00-10.9); Hematocrit 29.5 VOL% (42.0-52.0); Hemoglobin 9.2 GM/DL (14.0-18.0); Immature Granulocytes % 0.3 %; Immature Granulocytes Absolute 0.02 #; Lymphocytes % 15.7 % (21.2-54.2); Mean Corpuscular HGB Conc 31.2 GM/DL (32-36); Mean Corpuscular Hemoglobin 24 PG (27-34); Mean Corpuscular Volume 76.8 FL (87-102); Monocytes # 0.8 10*3/uL (0.11-0.8); Monocytes % 12.4 % (1.7-12.7); Neutrophils # 4.6 10*3/uL (1.4-7.4); Neutrophils % 70.7 % (38.7-73.9); Platelet Count 138 T/CUMM (130-400); Red Blood Count 3.84 MC/CUMM (3.8-5.5); Red Cell Distribution Width 17.4 % (9.3-17.3); White Blood Count 6.4 T/CUMM (4-12)
[2017-08-14 02:52] LABS: VBG Base Excess -8.6 MEQ/L (0-4); VBG Oxygen Saturation 87.6 %; VBG PCO2 41.5 MMHG (41-51); VBG PH 7.255; VBG PO2 57.8 MMHG (17-40)
[2017-08-14 03:10] LABS: Albumin 2.7 G/DL (3.4-5.0); Bilirubin,Total 4.1 MG/DL (0.2-1.0); Calcium 8.2 MG/DL (8.5-10.1); Osmolality,Calculated 283.5 MOS/KG (273-304); Potassium 5.8 MMOL/L (3.5-5.1); Total Protein 6.4 G/DL (6.4-8.3)
[2017-08-14] MEDS ORDERED: SODIUM CHLORIDE 0.9% 1,000 ML IV STA ×2 (04:50→06:21)
[2017-08-14] MEDS ORDERED: CEFEPIME 2,000 MG in SODIUM CHLORIDE 0.9% 100 ML IV STA (05:23)
[2017-08-14] MEDS ORDERED: VANCOMYCIN INJ 1,000 MG in SODIUM CHLORIDE 0.9% 250 ML IV STA (05:23)
[2017-08-14] MEDS ORDERED: VANCOMYCIN 1,000 MG VIAL ONE (05:29)
[2017-08-14] MEDS ORDERED: ACETAMINOPHEN 325 MG TABLET PO PRN (06:15)
[2017-08-14] MEDS ORDERED: ONDANSETRON 4 MG/2 ML VIAL IV PRN (06:15)
[2017-08-14] MEDS ORDERED: ALBUTEROL 2.5 MG/3 ML NEB RESP TX PRN (06:15)
[2017-08-14] MEDS ORDERED: SODIUM CHLORIDE 0.9% 500 ML IV STA (06:21)
[2017-08-14] MEDS ORDERED: SODIUM CHLORIDE 0.9% 1,000 ML IV SCH (07:00)
[2017-08-14] MEDS ORDERED: ENOXAPARIN 30 MG/0.3 ML SYRINGE SUBCUT SCH (08:00)
[2017-08-14] MEDS ORDERED: ENOXAPARIN 40 MG/0.4 ML SYRINGE ONE (08:11)
[2017-08-14] MEDS ORDERED: PIPERACILLIN/TAZOBACTAM 3,375 MG VIAL IV ONE (08:11)
[2017-08-14] MEDS: PIPERACILLIN/TAZOBACTAM 3,375 MG in SODIUM CHLORIDE 0.9% 100 ML IV SCH ×2 (08:40→18:43)
[2017-08-14] MEDS ORDERED: PANTOPRAZOLE 40 MG TABLET PO SCH (09:00)
[2017-08-14] MEDS ORDERED: DEXTROSE 50% 25 GM/50 ML SYRINGE IV ONE (09:20)
[2017-08-14] MEDS ORDERED: SODIUM BICARBONATE 50 MEQ/50 ML SYRINGE IV ONE (09:20)
[2017-08-14] MEDS ORDERED: INSULIN REGULAR 100 UNIT/ML ONE ×2 (09:22→20:16)
[2017-08-14] MEDS ORDERED: DEXTROSE IV SCH (09:30)
[2017-08-14] MEDS ORDERED: INSULIN REGULAR IV SCH (09:30)
[2017-08-14] MEDS ORDERED: SODIUM BICARB IV SCH (09:30)
[2017-08-14] MEDS ORDERED: [UNRECOGNIZED DRUG - OTHER] IV SCH (09:30)
[2017-08-14] MEDS ORDERED: PANTOPRAZOLE 40 MG TABLET PO ONE (09:53)
[2017-08-14] MEDS ORDERED: ATAZANAVIR SULFATE 300 MG PO SCH (12:45)
[2017-08-14] MEDS ORDERED: ALBUTEROL 2.5 MG/3 ML NEB RESP TX ONE (12:48)
[2017-08-14] MEDS ORDERED: methylPREDNISolone SOD SUC 125 MG/2 ML VIAL IV SCH (14:00)
[2017-08-14] MEDS: ALBUTEROL/IPRATROPIUM 3 ML NEB RESP TX SCH ×2 (15:12→19:11)
[2017-08-14] MEDS ORDERED: GLUCAGON 1 MG VIAL IM PRN (16:44)
[2017-08-14] MEDS ORDERED: DEXTROSE 50% 25 GM/50 ML VIAL IV PRN (16:44)
[2017-08-14 18:46] VITALS: BP 126/70
[2017-08-14] MEDS: LOPINAVIR/RITONAVIR 200-50 MG TABLET PO SCH ×2 (18:47→18:48)
[2017-08-14] MEDS ORDERED: FUROSEMIDE 40 MG/4 ML VIAL IM ONE (19:58)
[2017-08-14] MEDS ORDERED: EPINEPHrine 1 MG/10 ML SYRINGE ONE (20:26)
[2017-08-14] MEDS ORDERED: AMIODARONE INJ 450 MG in DEXTROSE 5% 241 ML IV SCH (20:30)
[2017-08-14] MEDS ORDERED: ZALEPLON 5 MG CAPSULE PO SCH (21:00)
[2017-08-14] MEDS ORDERED: INSULIN LISPRO 100 UNIT/ML SUBCUT SCH (21:00)
[2017-08-14] MEDS ORDERED: RALTEGRAVIR 400 MG TABLET PO SCH (21:00)
[2017-08-14] MEDS ORDERED: LOPINAVIR/RITONAVIR 200-50 MG TABLET PO SCH (21:00)
[2017-08-14] MEDS ORDERED: INSULIN NPH/REGULAR 70/30 100 UNIT/ML SUBCUT SCH ×2 (21:00)
[2017-08-15] MEDS ORDERED: INSULIN NPH/REGULAR 70/30 100 UNIT/ML SUBCUT SCH ×2 (09:00)
[2017-08-15] MEDS ORDERED: ISOSORBIDE MONONITRATE 30 MG TABLET PO SCH (09:00)
[2017-08-15] MEDS ORDERED: PANTOPRAZOLE 40 MG TABLET PO SCH (09:00)
[2017-08-15] MEDS ORDERED: VANCOMYCIN INJ 1,000 MG in SODIUM CHLORIDE 0.9% 250 ML IV SCH (12:00)
== END 2017-08-14 20:33 | disposition expired | DRG 974 ==
LOC: SUATTDRO → N.ED 00:43 → N.EDINP 06:15 → N.ICU 13:00
PROVIDERS: ADMIT Internal Medicine; ATTEND Internal Medicine